=== PATIENT | female | born 1990 | race Caucasian/White ===

== ENCOUNTER 2017-02-11 20:35 | Emergency (ER) | payer OTHER ==
[~2017-02-11] VITALS: Ht 167.6 cm; Wt 95.5 kg
[2017-02-11 20:46] VITALS: Ht 167.6 cm; Wt 95.5 kg
[2017-02-11] MEDS ORDERED: LORAZEPAM 2 MG INJ IM ONE ×2 (21:30→23:00)
[2017-02-11] MEDS ORDERED: HALOPERIDOL 5 MG INJ IM ONE ×2 (21:30→23:00)
[2017-02-11 22:25] LABS: ADD UMIC YES; UR ASCORBIC ACID NEGATIVE (NEGATIVE); UR BILIRUBIN (Dip) NEGATIVE (NEGATIVE); UR BLOOD (Dip) NEGATIVE (NEGATIVE); UR CLARITY CLOUDY (CLEAR); UR COLOR YELLOW (YELLOW); UR GLUCOSE (Dip) NEGATIVE (NEGATIVE); UR KETONES (Dip) NEGATIVE (NEGATIVE); UR LEUKOCYTE ESTERASE (Dip) 2+ Leu/ul (NEGATIVE); UR MUCUS FEW /HPF (NONE SEEN); UR NITRITE (Dip) NEGATIVE (NEGATIVE); UR RBC 4 /HPF (0-5); UR SQUAMOUS EPITHELIAL CELL MANY /HPF (FEW); UR TOTAL PROTEIN (Dip) 1+ mg/dl (NEGATIVE); UR UROBILINOGEN (Dip) NEGATIVE (NEGATIVE)
[2017-02-11 22:27] LABS: ADD SCAN DIFF NO
[2017-02-11 22:32] LABS: BASOPHIL # 0.1 10^3/ul (0.0-0.1); BASOPHILS % 0.8 % (0.0-2.0); EOSINOPHILS # 0.1 10^3/ul (0.0-0.5); HEMATOCRIT 36.2 % (37.0-47.0); HEMOGLOBIN 11.6 g/dl (12.0-16.0); LYMPHOCYTES # 2.2 10^3/ul (0.8-2.9); LYMPHOCYTES % 27.7 % (15.0-51.0); MEAN CORPUSCULAR HEMOGLOBIN 26.9 pg (29.0-33.0); MEAN PLATELET VOLUME 10.1 fl (7.4-10.4); MONOCYTE # 0.5 10^3/ul (0.3-0.9); MONOCYTES % 5.9 % (0.0-11.0); NEUTROPHIL # 5.1 10^3/ul (1.6-7.5); NEUTROPHILS % 64.2 % (39.0-77.0); PLATELET COUNT 340 10^3/UL (140-415); RED BLOOD COUNT 4.31 10^6/ul (4.20-5.40); RED CELL DISTRIBUTION WIDTH 16.8 % (11.5-14.5); WHITE BLOOD COUNT 7.9 10^3/ul (4.8-10.8)
[2017-02-11 22:54] LABS: BENZODIAZEPINES Negative (NEGATIVE); CANNABINOIDS Negative (NEGATIVE); COCAINE Negative (NEGATIVE); OPIATES Negative (NEGATIVE)
[2017-02-11 22:58] LABS: ALANINE AMINOTRANSFERASE 37 IU/L (13-69); ALBUMIN 3.9 g/dl (3.3-4.9); ALBUMIN/GLOBULIN RATIO 1.44; ALKALINE PHOSPHATASE 61 IU/L (42-121); ANION GAP 16 (8-16); ASPARTATE AMINO TRANSFERASE 18 IU/L (15-46); BLOOD UREA NITROGEN 16 mg/dl (7-20); CALCIUM 9.3 mg/dl (8.4-10.2); CARBON DIOXIDE 28 mmol/L (21-31); CHLORIDE 103 mmol/L (97-110); CREATININE 1.06 mg/dl (0.44-1.00); GLUCOSE 86 mg/dl (70-220); POTASSIUM 4.4 mmol/L (3.5-5.1); SODIUM 143 mmol/L (135-144); TOTAL PROTEIN 6.6 g/dl (6.1-8.1)
[2017-02-11 23:00] LABS: ACETAMINOPHEN < 10.0 ug/ml (10.0-30.0); ETHANOL < 10.0 mg/dl; SALICYLATE < 1.0 mg/dl (5.0-30.0)
[2017-02-11] MEDS ORDERED: DIPHENHYDRAMINE 50 MG INJ IM ONE (23:00)
--- NOTE | 2017-02-11 23:02 | PSY ---
Date/Time of Note Date/Time of Note DATE: 02/11/17 TIME: 20:50 Psychiatric Subjective Eval Subjective Evaluation Chief Complaint: BIBA WITH [employer] FOR PSYCH EVAL History of present illness patient is a 26 yo female with PPH Of depression and anxiety who was brought in to the ER by ambulance after her fiance called 911 stating that she was suicidal and disorganized, in the ER she continued to be disorganized, illogical and paranoid. Patient tells me that she is in the ER to get witness protection and that her boyfriend is in the secret service and she she been really scared of something happening to her, she feels FBI is following her, she has pressured speech and flight of ideas, disorganized and illogical speech , states that her boyfriend gave her amphetamine because she has ADHD , she is very anxious, she states that she cant tell me if she is feeling suicidal because she feels too confused. denies hallucinations. denies HI. Past psychiatric history past suicidal attemtp yes Hospitalization: yes Family History denies Medical history as per record Allergies: Coded Allergies: Unknown: Unable to obtain (Unverified , 02/11/17) PT RAMBLING NOT MAKE SENSE Substance Abuse Substance abuse history: Yes (amphetamine ) Prior substance abuse treatmen: No Social History Marital status: single Level of education: hs DPA/Conservatorship: No Occupation/Halfway: unemployed Psychiatric Objective Eval Review of Systems: Review of Systems: Not Applicable Physical Examination: Physical Examination: Applicable Sleep: Insomnia Appetite: Decreased Energy: Increased Interest: Increased Mental Status Examination: Appearance: Disheveled Eye Contact: Good Psychomotor Activity: Agitated Behavior: Cooperative Speech: Pressured AFFECT: Libile Mood: Anxious, Elevated Though Process: FOI Thought Content: Delusions Suicidal: Yes Homicidal: No Orientation: x3 Cognition: Alert Insight: Impared Judgement: Impared Attention Span: Distractible Laboratory Results Laboratory Tests Test 02/11/17 20:55 02/11/17 22:19 Urine Color YELLOW Urine Clarity CLOUDY Urine pH 5.0 Urine Specific [place] 1.030 Urine Ketones NEGATIVEmg/dL Urine Nitrite NEGATIVEmg/dL Urine Bilirubin NEGATIVEmg/dL Urine Urobilinogen NEGATIVEmg/dL Urine Leukocyte Esterase 2+[place]inson/ul Urine Microscopic RBC 4/HPF Urine Microscopic WBC 13/HPF Urine Squamous Epithelial Cells MANY/HPF Urine Mucus FEW/HPF Urine Hemoglobin NEGATIVEmg/dL Urine Glucose NEGATIVEmg/dL Urine Total Protein 1+mg/dl White Blood Count 7.910^3/ul Red Blood Count 4.3110^6/ul Hemoglobin 11.6g/dl Hematocrit 36.2% Mean Corpuscular Volume 84.0fl Mean Corpuscular Hemoglobin 26.9pg Mean Corpuscular Hemoglobin Concent 32.0g/dl Red Cell Distribution Width 16.8% Platelet Count 55240^3/UL Mean Platelet Volume 10.1fl Neutrophils % 64.2% Lymphocytes % 27.7% Monocytes % 5.9% Eosinophils % 1.0% Basophils % 0.8% Nucleated Red Blood Cells % 0.0/100WBC Neutrophils # 5.110^3/ul Lymphocytes # 2.210^3/ul Monocytes # 0.510^3/ul Eosinophils # 0.110^3/ul Basophils # 0.110^3/ul Nucleated Red Blood Cells # 0.010^3/ul Assessment and Plan Assessment/Diagnosis [place] I: bipolar do nos r.o amphetamine abuse r/o amphetamine induced psychosis anxiety do nos [place] II: deferred [place] III: as per record [place] IV: poor social support [place] V: gaf 25 Recommendation/Plan Medication Management haldol 5 mg im with ativan 2 mg im and benadryl 50 mg im staf for agitation and psychosis and bid Follow-up/Disposition Patient cannot be treated at a lower level of care today due to GRAVE DISABLITY including an inability to carry out basic transactions necessary for survival in these areas and as evidenced by these behaviors: ] ~Unable to seek out Food, Clothing,and ~Detention Severe Financial Incompetence Severe Failure to Adjust in the Community Severe Incompetence in Regards to Health Self-Management Patient is labile, intrusive and socially inappropriate with personal boundaries Confused, disoriented and/or grossly unable to distinguish reality from illusion Requires near constant monitoring to prevent inadvertent danger to self and others No family members willing and able to care for patient in the community [id number] Recommendation: CRISTI Lazcano MD Feb 11, 2017 23:00
[2017-02-11] MEDS ORDERED: UDTEG PO (23:19)
[2017-02-11] MEDS ORDERED: CLON-412 PO (23:19)
[2017-02-11] MEDS ORDERED: HYDR-3027 PO (23:19)
[2017-02-11] MEDS ORDERED: BENZ1TAB7 PO (23:19)
[2017-02-11 23:55] LABS: BARBITURATES POSITIVE (NEGATIVE)
--- NOTE | 2017-02-12 02:04 | ERA ---
ER Documentation Chief Complaint Date/Time DATE: 02/12/17 TIME: 02:04 Chief Complaint BIBA WITH [employer] FOR PSYCH EVAL HPI This 26 year female is primarily be for psych eval. Apparently she has been spines auditory and visual hallucinations. Patient is very tangential in her responses ROS All systems reviewed and are negative except as per history of present illness. Medications Home Meds Reported Medications Hydrocodone Bit/Acetaminophen (Vicodin HP 10-300) 1 Each Tablet, 1 TAB PO Q4H Y for PAIN, TAB 02/11/17 Clonazepam* (Klonopin*) 1 Mg Tablet, 1 MG PO BID, TAB 02/11/17 Benztropine Mesylate* (Benztropine Mesylate*) 1 Mg Tablet, 1 MG PO TID, TAB 02/11/17 Carbamazepine* (Tegretol*) 100 Mg/5 Ml Susp, 200 MG PO BID, ML 02/11/17 Allergies Allergies: Coded Allergies: tramadol (Unverified Allergy, Intermediate, NAUSEA, 02/11/17) tetracycline (Unverified Allergy, Mild, RASHES, 02/11/17) PMhx/Soc Hx Alcohol Use: Yes (OCCASIONAL) Hx Substance Use: No Hx Tobacco Use: Yes Smoking Status: Current every day smoker Physical Exam Vitals Vital Signs Date Time Temp Pulse Resp B/P Pulse Ox O2 Delivery O2 Flow Rate FiO2 02/11/17 20:46 98.9 111 20 134/90 100 Physical Exam Const: [] Head: Atraumatic Eyes: Normal Conjunctiva ENT: Normal External Ears, Nose and Mouth. Neck: Full range of motion..~ No meningismus. Resp: Clear to auscultation bilaterally Cardio: Regular rate and rhythm, no murmurs Abd: Soft, non tender, non distended. Normal bowel sounds Skin: No petechiae or rashes Back: No midline or flank tenderness Ext: No cyanosis, or edema Neur: Awake and alert Psych: Normal Mood and Affect Result Diagram: 02/11/17221802/11/172218 Results 24 hrs Laboratory Tests Test 02/11/17 20:55 02/11/17 22:19 Urine Color YELLOW Urine Clarity CLOUDY Urine pH 5.0 Urine Specific [place] 1.030 Urine Ketones NEGATIVEmg/dL Urine Nitrite NEGATIVEmg/dL Urine Bilirubin NEGATIVEmg/dL Urine Urobilinogen NEGATIVEmg/dL Urine Leukocyte Esterase 2+[place]/ul Urine Microscopic RBC 4/HPF Urine Microscopic WBC 13/HPF Urine Squamous Epithelial Cells MANY/HPF Urine Mucus FEW/HPF Urine Hemoglobin NEGATIVEmg/dL Urine Glucose NEGATIVEmg/dL Urine Total Protein 1+mg/dl Urine Opiates Screen Negative Urine Barbiturates POSITIVE Urine Amphetamines Screen POSITIVE Urine Benzodiazepines Screen Negative Urine Cocaine Screen Negative Urine Cannabinoids Negative White Blood Count 7.910^3/ul Red Blood Count 4.3110^6/ul Hemoglobin 11.6g/dl Hematocrit 36.2% Mean Corpuscular Volume 84.0fl Mean Corpuscular Hemoglobin 26.9pg Mean Corpuscular Hemoglobin Concent 32.0g/dl Red Cell Distribution Width 16.8% Platelet Count 73504^3/UL Mean Platelet Volume 10.1fl Neutrophils % 64.2% Lymphocytes % 27.7% Monocytes % 5.9% Eosinophils % 1.0% Basophils % 0.8% Nucleated Red Blood Cells % 0.0/100WBC Neutrophils # 5.110^3/ul Lymphocytes # 2.210^3/ul Monocytes # 0.510^3/ul Eosinophils # 0.110^3/ul Basophils # 0.110^3/ul Nucleated Red Blood Cells # 0.010^3/ul Sodium Level 143mmol/L Potassium Level 4.4mmol/L Chloride Level 103mmol/L Carbon Dioxide Level 28mmol/L Anion Gap 16 Blood Urea Nitrogen 16mg/dl Creatinine 1.06mg/dl Glucose Level 86mg/dl Calcium Level 9.3mg/dl Total Bilirubin 0.0mg/dl Direct Bilirubin 0.00mg/dl Indirect Bilirubin 0.0mg/dl Aspartate Amino Transf (AST/SGOT) 18IU/L Alanine Aminotransferase (ALT/SGPT) 37IU/L Alkaline Phosphatase 61IU/L Total Protein 6.6g/dl Albumin 3.9g/dl Globulin 2.70g/dl Albumin/Globulin Ratio 1.44 Salicylates Level < 1.0mg/dl Acetaminophen Level < 10.0ug/ml Ethyl Alcohol Level < 10.0mg/dl Current Medications Medications (Trade) Dose Ordered Sig/Hiram Route PRN Reason Start Time Stop Time Status Last Admin Dose Admin Lorazepam (Ativan) 2 mg ONCE ONCE IM 02/11/17 21:30 02/11/17 21:31 DC 02/11/17 21:24 Haloperidol (Haldol) 2 mg ONCE ONCE IM 02/11/17 21:30 02/11/17 21:31 DC Lorazepam (Ativan) 2 mg ONCE ONCE IM 02/11/17 23:00 02/11/17 23:01 DC Haloperidol (Haldol) 5 mg ONCE ONCE IM 02/11/17 23:00 02/11/17 23:01 DC Diphenhydramine HCl (Benadryl) 50 mg ONCE ONCE IM 02/11/17 23:00 02/11/17 23:01 DC Procedures/MDM Patient's behavioral symptoms have stabilized while in the department. Patient is medically cleared and appropriate for psychiatric evaluation and work up. No e/o neurologic, toxic, infectious, or metabolic cause. Patient placed on telemetry psychiatry [id number]. Pending BHU placement. Departure Diagnosis: Primary Impression: Psychological disorder Condition: Serious TOBI LIVINGSTON Feb 12, 2017 02:04
[2017-02-12 11:16] VITALS: BP 133/89; PULSE 66; RESP 18; TEMP 98
[2017-02-12] MEDS ORDERED: ACETAMINOPHEN 325 MG TAB ONE (11:49)
[2017-02-12] MEDS ORDERED: LORAZEPAM 2 MG INJ IM ONE (12:00)
[2017-02-12] MEDS ORDERED: ACETAMINOPHEN 325 MG TAB PO ONE (12:00)
== END 2017-02-12 13:30 ==
LOC: E/R 20:35
DX: F45.9 Somatoform disorder, unspecified (principal); F17.210 Nicotine dependence, cigarettes, uncomplicated
CPT/HCPCS: 36415; 80053; 80306; 80307; 81001; 85025; 96372; 99285; J1630; J2060